=== PATIENT | male | born 1955 | race Hispanic/Latino ===

== ENCOUNTER → 2017-05-22 | Outpatient (CLI) | payer BC ==
[~2017-05-22] MED LIST: LOSARTAN POTASS50 MG PO; NIFEDIPINE ER30 M1 PO; TAMSULOSIN HCL0.4 MG PO
--- NOTE | 2017-05-22 18:38 | Diagnostic Imaging Report ---
PROCEDURE:SHOULDER COMPLETE BILATERAL INDICATION:Chronic shoulder pain COMPARISON:None. FINDINGS: Normal mineralization. No acute displaced fracture or dislocation. No lytic or blastic lesion. Glenohumeral joints are grossly unremarkable. Degenerative changes in the right a.c. joint, without a.c. separation. Left a.c. joint is grossly unremarkable. Visualized portions of the lungs are clear. Soft tissues unremarkable. CONCLUSION: No acute abnormalities. MRI of the shoulders is recommended if there is continued pain and clinical concern for ligamentous or labral injury, or impingement Luis Alberto Harrison M.D. Dictated by: Luis Alberto Harrison M.D. on 05/22/2017 at 18:39 Electronically approved by: Luis Alberto Harrison M.D. on 05/22/2017 at 18:39
== END ==
LOC: RAD 17:38
PROVIDERS: ATTEND Family Medicine
DX: M25.519 Pain in unspecified shoulder (principal)

== ENCOUNTER → 2018-02-16 | Day surgery (SDC) | payer BC ==
[~2018-02-16] MED LIST changes: +FENTANYL CITRATE/PF 100MCG/2 ML INJ ONE; +HYOSCYAMINE SULFATE 0.5 MG/ML INJ ONE; +MIDAZOLAM HCL 5MG/ML 2ML VIAL ONE; +PROPOFOL IV EMULSION 10 MG/ML 50 ML VIAL ONE
[2018-02-16 11:41] VITALS: BP 122/80
--- NOTE | 2018-02-16 13:19 | Operative Report ---
DATE OF PROCEDURE: February 16, 2018 REFERRING PHYSICIAN: Dr. Randi Diehl. PROCEDURE PERFORMED: Colonoscopy and polypectomy. INDICATIONS FOR COLONOSCOPY: Surveillance colonoscopy, personal history of colon polyps. MEDICATION: Patient was done under MAC. Please see anesthesiologist's note. PROCEDURE: With the patient in left lateral decubitus position, the flexible fiberoptic Olympus colonoscope was inserted into the rectum with ease and advanced all the way to the cecum. Mucosa overlying the cecum appeared to be within normal limits. One polyp was hot biopsied from the ascending colon. The transverse appeared to be within normal limits. Diverticular disease was noted to involve the distal descending and the sigmoid colon. The rectum appeared to be within normal limits. The scope was then retroflexed into the distal rectum and small internal hemorrhoids were noted, none of which was actively bleeding. Scope was then straightened out and was subsequently withdrawn. Patient tolerated the procedure well. IMPRESSION 1. Ascending colon polyp, hot biopsied. 2. Diverticulosis. 3. Internal hemorrhoids, none actively bleeding. PLAN: Follow up histology. Initiate high-fiber low-fat diet. Initiate high-fiber supplement. Patient might benefit from a followup colonoscopy in 3 to 5 years. Job#: [id number] AKU cc:RANDI DIEHL MD
--- OUTSIDE RECORDS SUMMARY | 2018-02-18 10:51 | XMS REPORT ---
Author [facility] Address Unknown Phone Unavailable Care Team Providers Care Weight Loss Consultant Name Role Phone RANDI DIEHL Unavailable Unavailable Problems This patient has no known problems. Allergies, Adverse Reactions, Alerts This patient has no known allergies or adverse reactions. Medications This patient has no known medications. Results Test Description Test Time Test Comments Text Results Atomic Results Result Comments SHOULDER COMPLETE BILATERAL [place] [address] Patient Name: JANENE URENA MR #: [id number] : 1955 Age/Sex: 61/M Req #: [id number] Adm Physician: Ordered by: SHANITA ALARCON, RANDI Brasher MD Report #: [id number] Location: [facility] Room/Bed: Procedure: [id number] DX/SHOULDER COMPLETE BILATERAL Exam Date: 05/22/17 Exam Time: 1750 REPORT STATUS: Signed PROCEDURE: SHOULDER COMPLETE BILATERAL INDICATION: Chronic shoulder pain COMPARISON: None. FINDINGS: Normal mineralization. No acute displaced fracture or dislocation. No lytic or blastic lesion. Glenohumeral joints are grossly unremarkable. Degenerative changes in the right a.c. joint, without a.c. separation. Left a.c. joint is grossly unremarkable. Visualized portions of the lungs are clear. Soft tissues unremarkable. CONCLUSION: No acute abnormalities. MRI of the shoulders is recommended if there is continued pain and clinical concern for ligamentous or labral injury, or impingement Grupo. Christy, M.D. Dictated by: Jae Harrison M.D. on 05/22/2017 at 18:39 Electronically approved by: Jae Harrison M.D. on 05/22/2017 at 18:39 Dictated By: JAE HARRISON MD 38 Transcribed By: SERA on 05/22/171838 COPY TO: RANDI DIEHL
--- OUTSIDE RECORDS SUMMARY | 2018-02-18 10:51 | XMS REPORT | Summary of Care ---
Author Author Urgent Care [facility] [place] Address Unknown Phone Unavailable Encounter [facility](FIN) [id number] Date(s): 02/15/17 - 02/15/17 [facility] [address] [place] [phone] Discharge Disposition: Home or Self Care Vital Signs Most recent to 1 oldest [Reference Range]: Blood Pressure 121/76 mmHg [90-140/60-90 mmHg] (02/15/17 8:26 PM) Weight 72.727 kg (02/15/17 8:26 PM) Problem List Condition Effective Dates Status Health Status Informant BPH(Confirmed) Active Bunion(Confirmed)1 Active Hammer Active toe(Confirmed)2 Hypertension(Confirm Active ed) 1left foot 2left foot Allergies, Adverse Reactions, Alerts Substance Reaction Severity Status NKDA Active Medications No Known Medications Results No data available for this section Immunizations Given and Recorded Vaccine Date Status Refusal Reason diphtheria/pertussis, acel/tetanus adult 02/13/17 Given Procedures Procedure Date Related Diagnosis Body Site Neck procedure Social History Social History Type Response Smoking Status Never smoker; Exposure to Tobacco Smoke None; Cigarette Smoking Last 365 Days No; Reg Smoking Cessation Counseling No Assessment and Plan No data available for this section
--- OUTSIDE RECORDS SUMMARY | 2018-02-18 10:51 | XMS REPORT | Summary of Care ---
Author Author Urgent Care [facility] [place] Address Unknown Phone Unavailable Encounter [facility](FIN) [id number] Date(s): 02/25/17 - 02/25/17 Urgent [facility] [address] [place] [phone] Discharge Disposition: Home or Self Care Vital Signs Most recent to 1 oldest [Reference Range]: Height 167.64 cm (02/25/17 2:57 PM) Temperature Oral 98.5 DegF [96.4-99.1 DegF] (02/25/17 2:57 PM) Blood Pressure 121/67 mmHg [90-140/60-90 mmHg] (02/25/17 2:57 PM) Respiratory Rate 14 BRMIN [14-20 BRMIN] (02/25/17 2:57 PM) Peripheral Pulse 78 bpm Rate [60-100 bpm] (02/25/17 2:57 PM) Weight 73.636 kg (02/25/17 2:57 PM) Body Mass Index 26.2 m2 (02/25/17 2:57 PM) Problem List Condition Effective Dates Status [...]
--- OUTSIDE RECORDS SUMMARY | 2018-02-18 10:51 | XMS REPORT | Summary of Care ---
Author Author Urgent [facility] [place] Address Unknown Phone Unavailable Encounter [facility](FIN) [id number] Date(s): 02/13/17 - 02/13/17 [facility] [address] [place] [phone] Discharge Disposition: Home or Self Care Vital Signs Most recent to 1 oldest [Reference Range]: Height 167.64 cm (02/13/17 8:47 PM) Temperature Oral 98.1 DegF [96.4-99.1 DegF] (02/13/17 8:47 PM) Blood Pressure 136/81 mmHg [90-140/60-90 mmHg] (02/13/17 8:47 PM) Peripheral Pulse 73 bpm Rate [60-100 bpm] (02/13/17 8:47 PM) Weight 72.386 kg (02/13/17 8:47 PM) Body Mass Index 25.76 m2 (02/13/17 8:47 PM) Problem List Condition Effective Dates Status Health Status Informant BPH(Confirmed) Active Bunion(Confirmed)1 Active Hammer Active toe(Confirmed)2 Hypertension(Confirm Active ed) 1left foot 2left foot Allergies, Adverse Reactions, Alerts Substance Reaction Severity Status NKDA Active Medications cefTRIAXone 500 mg, Route: IM, ONCE, Dosing Weight 72.386, kg, Start date: 02/13/17 21:16:00 STEAM TUNNEL FEEDER, Stop date: 02/13/17 21:16:00 STEAM TUNNEL FEEDER Start Date: 02/13/17 Stop Date: 02/13/17 Status: Completed Results No data available for this section [...]
--- OUTSIDE RECORDS SUMMARY | 2018-02-18 10:51 | XMS REPORT | Summary of Care ---
Author Organization Unknown Address Unknown Phone Unavailable Encounter [facility]_jazm[facility](JN) [id number] Date(s): 01/26/14 - 01/26/14 [facility] [address] [address] Discharge Disposition: Home Physician Attending: Mark Billy DPM Physician_Referring: Mark Billy DPM Reason for Visit 735.0/735.4/729.9 Vital Signs 1 2 3 Most recent to oldest [Reference Range]: 167.64 cm (01/23/14 9:26 AM) Height 98.6 DegF (01/23/14 9:26 AM) Temperature Oral [96.4-99.1 DegF] 120 mmHg (01/26/14 10:30 AM) 119 mmHg (01/26/14 9:45 AM) 116 mmHg (01/26/14 9:30 AM) Systolic Blood Pressure [90-140 mmHg] 71 mmHg (01/26/14 10:30 AM) 69 mmHg (01/26/14 9:45 AM) 73 mmHg (01/26/14 9:30 AM) Diastolic Blood Pressure [60-90 mmHg] 16 BRMIN (01/26/14 9:45 AM) 18 BRMIN (01/26/14 9:30 AM) 13 BRMIN *LOW* (01/26/14 9:15 AM) Respiratory Rate [14-20 BRMIN] 68 bpm (01/26/14 9:00 AM) 79 bpm (01/26/14 7:42 AM) 79 bpm (01/23/14 9:26 AM) Peripheral Pulse Rate [60-100 bpm] 73.892 kg (01/23/14 9:26 AM) Weight 26.29 m2 (01/23/14 9:26 AM) Body Mass Index Problem List Condition Effective Dates Status Health Status Informant BPH(Confirmed) Active Bunion(Confirmed)1 Active Hammer Active toe(Confirmed)2 Hypertension(Confirm Active ed) 1left foot 2left foot Allergies, Adverse Reactions, Alerts Substance Reaction Severity Status NKDA Active Medications fentaNYL 50 microgram, 1 mL, Route: IVP, Drug form: INJ, Q5Min, Dosing Weight 73.892, kg, PRN Pain Score 7-10, Start date: 01/26/14 9:33:00, Duration: 2 doses or times, Stop date: Limited # of times Notes: (Same as: Sublimaze) Preservative free. Start Date: 01/26/14 Stop Date: 01/26/14 Status: Discontinued flumazenil 0.2 mg, 2 mL, Route: IVP, Drug form: INJ, PRN, Dosing Weight 73.892, kg, PRN Pankaj zodiazepine Reversal, Initial dose, Start date: 01/26/14 9:33:00, Duration: 30 d ay, Stop date: 02/25/14 9:32:00 Notes: (Same as: Romazicon) Start Date: 01/26/14 Stop Date: 01/26/14 Status: Discontinued hydrochlorothiazide-losartan 12.5 mg-50 mg oral tablet 1 tab, PO, Daily, # 30 tab, 0 Refill(s) Start Date: 01/23/14 Status: Ordered hydromorphone 0.5 mg, 0.5 mL, Route: IVP, Drug form: INJ, Q5Min, Dosing Weight 73.892, kg, PRN Pain Score 7-10, Start date: 01/26/14 9:33:00, Duration: 4 doses or times, Stop date: Limited # of times Start Date: 01/26/14 Stop Date: 01/26/14 Status: Discontinued ketorolac 30 mg, 1 mL, Route: IVP, Drug form: INJ, ONCE, Dosing Weight 73.892, kg, Start d ate: 01/26/14 9:33:00, Duration: 1 doses or times, Stop date: 01/26/14 9:33:00 Notes: (Same as:Toradol) IV bolus must be given >15 seconds. Give IM administration slowly and deeply into the muscle. Not for use > 4 days Start Date: 01/26/14 Stop Date: 01/26/14 Status: Ordered morphine Sulfate 2 mg, 1 mL, Route: IVP, Drug form: INJ, Q5Min, Dosing Weight 73.892, kg, PRN Dinorah n Score 4-6, Start date: 01/26/14 9:33:00, Duration: 5 doses or times, Stop date : Limited # of times Notes: (Same as:MORPhine Sulfate) Start Date: 01/26/14 Stop Date: 01/26/14 Status: Discontinued naloxone 0.04 mg, 0.1 mL, Route: IVP, Drug form: INJ, Q2MIN, Dosing Weight 73.892, kg, WA N Narcotic Reversal, Start date: 01/26/14 9:33:00, Duration: 8 doses or times, S top date: Limited # of times Notes: Same as Narcan Start Date: 01/26/14 Stop Date: 01/26/14 Status: Discontinued NIFEdipine 30 mg oral tablet, extended release 30 mg=1 tab, PO, Bedtime, # 30 tab, 0 Refill(s) Start Date: 01/23/14 Status: Ordered Guymon 10/325 oral tablet 1 tab, Route: PO, Drug Form: TAB, Dosing Weight 73.892, kg, Q6H, PRN Pain, Start date: 01/26/14 9:33:00, Duration: 30 day, Stop date: 02/25/14 9:32:00 Notes: Do not exceed 4gm/day of acetaminophen. (Same as: Guymon 325/10) Start Date: 01/26/14 Stop Date: 01/26/14 Status: Discontinued Ofirmev 1,000 mg, 100 mL, Route: IV, Drug form: INJ, ONCE, Dosing Weight 73.892, kg, PRN Pain, for > or=50 kg, Start date: 01/26/14 9:33:00 Notes: Infuse over 15 minutes Do not exceed 4gm/day of acetaminophen Start Date: 01/26/14 Stop Date: 01/26/14 Status: Discontinued ondansetron 4 mg, 2 mL, Route: IVP, Drug form: INJ, ONCE, Dosing Weight 73.892, kg, PRN Naus ea & Vomiting, Start date: 01/26/14 9:33:00 Notes: (Same as: Zofran) Start Date: 01/26/14 Stop Date: 01/26/14 Status: Discontinued tamsulosin 0.4 mg oral capsule 0.4 mg=1 cap, PO, Daily, # 30 cap, 0 Refill(s) Start Date: 01/23/14 Status: Ordered Medications Administered During Your Visit No data available for this section Immunizations No data available for this section Procedures Procedure Type Body Site Date of Procedure Related Diagnosis Neck procedure Social History Social History Type Response Smoking Status Never smoker, Exposure to Tobacco Smoke None, Cigarette Smoking Last 365 Days No, Reg Smoking Cessation Counseling No
== END | disposition home or self-care (01) ==
LOC: OR 07:56
PROVIDERS: ATTEND Internal Medicine Gastroenterology
DX: Z12.11 Encounter for screening for malignant neoplasm of colon (principal); N40.0 Benign prostatic hyperplasia without lower urinary tract symptoms; K57.30 Diverticulosis of large intestine without perforation or abscess without bleeding; K64.8 Other hemorrhoids; I10 Essential (primary) hypertension; Z68.27 Body mass index [BMI] 27.0-27.9, adult; Z80.0 Family history of malignant neoplasm of digestive organs
CPT/HCPCS: 45384; 93005; J1980; J2250

== ENCOUNTER → 2018-06-21 | Outpatient (CLI) | payer BC ==
[~2018-06-21] MED LIST changes: -FENTANYL CITRATE/PF 100MCG/2 ML INJ ONE; -HYOSCYAMINE SULFATE 0.5 MG/ML INJ ONE; -MIDAZOLAM HCL 5MG/ML 2ML VIAL ONE; -PROPOFOL IV EMULSION 10 MG/ML 50 ML VIAL ONE
--- NOTE | 2018-06-21 17:48 | Diagnostic Imaging Report ---
History: Low back pain Comparison studies: None Technique: Axial images were obtained from T11 inferior endplate through the sacrum.. Coronal and sagittal images reconstructed from the axial data. Intravenous contrast: None Dose modulation, iterative reconstruction, and/or weight based adjustment of the mA/kV was utilized to reduce the radiation dose to as low as reasonably achievable. Findings: Number of non-rib bearing vertebral bodies: 5 Alignment: Normal lordosis. No scoliosis. Soft tissues: No paraspinal abnormalities. Atherosclerotic calcifications of the abdominal aorta. Paraspinal muscles: Unremarkable. Vertebrae: No fractures, infection or neoplasm. Degenerative changes: L1-L2: Mild diffuse disc bulge with patent canal and mild bilateral foraminal narrowing. L2-L3: Mild diffuse disc bulge with patent canal and mild bilateral foraminal narrowing. L3-L4: Disc degeneration with loss of T2 signal and mild endplate sclerosis. Diffuse disc bulge with superimposed left central and subarticular inferiorly migrated disc extrusion results in obliteration of the left subarticular recess, mild canal stenosis and mild bilateral foraminal narrowing. L4-L5: Mildly degeneration with decreased intervertebral space and endplate sclerosis. Mild diffuse bulge and mild facet hypertrophy results in mild canal stenosis and mild bilateral foraminal narrowing L5-S1: Disc degeneration with decreased intervertebral space and endplate sclerosis. Mild diffuse disc bulge results in no significant canal stenosis and mild bilateral foraminal narrowing. Sacroiliac joints: No degenerative changes. IMPRESSION: 1. Left subarticular inferiorly migrated disc extrusion with obliteration of the left subarticular recess and possible impingement of the descending L4 nerve root, MRI of the lumbar spine recommended for further evaluation. 2. Mild degenerative changes with mild multilevel foraminal narrowing as described above. 3. No lumbar spine fracture. Signed by: DR Santos Wolf M.D. on 06/21/2018 5:44 PM
== END ==
LOC: CT 16:01
PROVIDERS: ATTEND Family Medicine
DX: M51.26 Other intervertebral disc displacement, lumbar region (principal); S39.012A Strain of muscle, fascia and tendon of lower back, initial encounter
CPT/HCPCS: 72131

== ENCOUNTER → 2019-11-07 | Day surgery (SDC) | payer OTHER ==
[~2019-11-07] MED LIST changes: +KETAMINE HCL INJ 50 MG/ML 10 ML VIAL ONE; +LIDOCAINE HCL 2% LOCAL INJ 5 ML SDV VIAL INJ ONE; +MIDAZOLAM HCL 2 MG/2 ML VIAL ONE; +PROPOFOL IV EMULSION 10 MG/ML 20 ML VIAL ONE
[2019-11-07 15:20] VITALS: BP 117/67
--- NOTE | 2019-11-07 18:48 | Operative Report ---
DATE OF PROCEDURE: 11/07/2019 SURGEON: Darren Medina MD PROCEDURE: EGD with esophageal dilatation and biopsies. INDICATIONS FOR EGD: Dysphagia/odynophagia. MEDICATIONS: The patient was done under MAC, please see anesthesiologist's note. PROCEDURE IN DETAIL: With the patient in left lateral decubitus position, flexible fiberoptic Olympus gastroscope was introduced into the esophagus under direct visualization without any difficulty. An erosion was noted in the distal esophagus. There was a mild stricture noted at the GE junction with a focal nodularity noted in the stricture and that was biopsied. The stricture was then dilated to size 52-Lithuan[place] Luna. The scope was then advanced with ease into the stomach traversing a small hiatal hernia. Mucosa overlying the antrum and the body revealed some patchy erythema and low-grade to moderate edema and biopsies were obtained, sent to stain for H pylori. The pylorus was of normal contour and shape, was intubated with ease and the scope, was advanced all the way to the second portion of the duodenum. Biopsies were obtained from the proximal second portion and the duodenal bulb to rule out sprue. The scope was then withdrawn back into the stomach and retroflexed mucosa overlying the fundus and cardia appeared to be within normal limits. The scope was then straightened out, it was subsequently withdrawn, the patient tolerated the procedure well. IMPRESSION: 1. Erosive distal esophagitis. 2. Focal nodularity, GE junction, biopsied. 3. Esophageal stricture GE junction, dilated to size 52-Lithuanian Luna. 4. Small hiatal hernia. 5. Gastritis, biopsied, biopsies sent to stain for H pylori. 6. Rule out sprue. PLAN: Follow up histology. Initiate Protonix 40 mg one p.o. q.a.m. a.c. Darren Medina MD [facility] [place] /[id number] cc: Giovanni Fitzgerald
== END | disposition home or self-care (01) ==
LOC: ENDO 12:05
PROVIDERS: ATTEND Internal Medicine Gastroenterology
DX: K22.2 Esophageal obstruction (principal); K29.70 Gastritis, unspecified, without bleeding; K22.10 Ulcer of esophagus without bleeding; K44.9 Diaphragmatic hernia without obstruction or gangrene; K63.5 Polyp of colon; I10 Essential (primary) hypertension; N40.0 Benign prostatic hyperplasia without lower urinary tract symptoms; Z01.810 Encounter for preprocedural cardiovascular examination; Z01.812 Encounter for preprocedural laboratory examination; Z11.59 Encounter for screening for other viral diseases; Z68.26 Body mass index [BMI] 26.0-26.9, adult; Z80.0 Family history of malignant neoplasm of digestive organs
CPT/HCPCS: 43239; 43450; 93005; J2001; J2250; J2704; U0002

== ENCOUNTER → 2022-08-19 | Day surgery (SDC) | payer OTHER, MEDICARE ==
[2022-08-18 12:50] LABS: BASOPHILS # (AUTO) 0.1 (0.0-0.1); BASOPHILS % 0.9 % (0.0-1.0); EOSINOPHILS # (AUTO) 0.1 (0.0-0.4); EOSINOPHILS % 1.4 % (0.0-6.0); HEMOGLOBIN 12.9 g/dL (14.0-18.0); LYMPHOCYTES # (AUTO) 3.3 (1.0-3.2); LYMPHOCYTES % 34.9 % (18.0-39.1); MEAN CORPUSCULAR HEMOGLOBIN 33.6 pg (28-32); MEAN CORPUSCULAR HGB CONC 34.9 g/dL (31-35); MEAN CORPUSCULAR VOLUME 96.4 fL (81-99); MONOCYTES # (AUTO) 0.7 (0.2-0.8); MONOCYTES % 7.7 % (4.4-11.3); NEUTROPHILS # (AUTO) 5.1 (2.1-6.9); NEUTROPHILS % 54.8 % (38.7-80.0); PLATELET COUNT 258 x10e3/uL (140-360); RED BLOOD COUNT 3.84 x10e6/uL (4.3-5.7); RED CELL DISTRIBUTION WIDTH 12.8 % (11.7-14.4)
[~2022-08-19] MED LIST changes: +FENTANYL CITRATE/PF 100MCG/2 ML INJ ONE; -KETAMINE HCL INJ 50 MG/ML 10 ML VIAL ONE; +LACTATED RINGER'S 1,000 ML BAG ONE; +LACTATED RINGER'S 1,000 ML ONE; -LIDOCAINE HCL 2% LOCAL INJ 5 ML SDV VIAL INJ ONE
[2022-08-19 12:18] VITALS: TEMP 97.1
[2022-08-19 12:50] VITALS: BP 114/62; PULSE 53; RESP 16; O2SAT 99
== END | disposition home or self-care (01) ==
LOC: ENDO 16:33
PROVIDERS: ATTEND Internal Medicine Gastroenterology
DX: K22.2 Esophageal obstruction (principal); K29.70 Gastritis, unspecified, without bleeding; K22.10 Ulcer of esophagus without bleeding; K44.9 Diaphragmatic hernia without obstruction or gangrene; K22.89 Other specified disease of esophagus; Z71.3 Dietary counseling and surveillance; I10 Essential (primary) hypertension; Z01.810 Encounter for preprocedural cardiovascular examination; Z01.812 Encounter for preprocedural laboratory examination; Z79.899 Other long term (current) drug therapy; Z68.26 Body mass index [BMI] 26.0-26.9, adult; Z80.0 Family history of malignant neoplasm of digestive organs
CPT/HCPCS: 36415; 43239; 43450; 85025; 93005; C9113; J2250; J2704; J3010; J7121

== ENCOUNTER → 2024-12-12 | Day surgery (SDC) | payer MEDICARE, OTHER ==
[2024-12-10 08:48] LABS: BASOPHILS % 0.4 % (0.0-1.0); EOSINOPHILS % 0.6 % (0.0-6.0); LYMPHOCYTES % 28.2 % (18.0-39.1); MONOCYTES % 7.2 % (4.4-11.3); NEUTROPHILS % 63.1 % (38.7-80.0); RED CELL DISTRIBUTION WIDTH 13.6 % (11.7-14.4)
[~2024-12-12] MED LIST changes: -FENTANYL CITRATE/PF 100MCG/2 ML INJ ONE; -LACTATED RINGER'S 1,000 ML BAG ONE; -LACTATED RINGER'S 1,000 ML ONE; +LIDOCAINE HCL 2% LOCAL INJ 5 ML SDV VIAL INJ ONE; +METHOCARBAMOL500 MG PO; +METOCLOPRAMIDE HCL 10 MG/2ML VIAL ONE; -MIDAZOLAM HCL 2 MG/2 ML VIAL ONE; +PANTOPRAZOLE SO40 MG PO; +PROPOFOL IV EMULSION 50 ML IV ONE
[2024-12-12 17:28] VITALS: TEMP 98.5
[2024-12-12 18:00] VITALS: BP 125/71; PULSE 70; RESP 16; O2SAT 98
== END | disposition home or self-care (01) ==
LOC: OR 13:32
PROVIDERS: ATTEND Internal Medicine Gastroenterology
DX: Z12.11 Encounter for screening for malignant neoplasm of colon (principal); K51.80 Other ulcerative colitis without complications; K57.30 Diverticulosis of large intestine without perforation or abscess without bleeding; K64.8 Other hemorrhoids; K22.10 Ulcer of esophagus without bleeding; K29.50 Unspecified chronic gastritis without bleeding; K44.9 Diaphragmatic hernia without obstruction or gangrene; I10 Essential (primary) hypertension; N40.0 Benign prostatic hyperplasia without lower urinary tract symptoms; Z79.899 Other long term (current) drug therapy; Z86.0100 Personal history of colon polyps, unspecified; Z80.0 Family history of malignant neoplasm of digestive organs; Z01.810 Encounter for preprocedural cardiovascular examination; Z01.812 Encounter for preprocedural laboratory examination
CPT/HCPCS: 36415; 43239; 45380; 85025; 88305; 88342; 93005; J2003; J2470; J2704 ×2; J2765; 43450; 45378